=== PATIENT | female | born 1930 | race Caucasian/White ===

== ENCOUNTER 2017-04-13 19:18 | Emergency (ER) | payer OTHER, MEDICARE ==
[2017-04-13] MEDS ORDERED: LET GEL TOPICAL 1 EA SYR TP ONE (19:34)
--- NOTE | 2017-04-13 19:41 | EDPHY ---
H & P HPI/ROS: CHIEF COMPLAINT: Facial injury HISTORY OF PRESENT ILLNESS: This is an 86-year-old female who tripped and fell while picking basil in the garden. She reports a mechanical fall with no preceding symptoms. She struck her left forehead and cheek, left arm, and right leg. There was no loss of consciousness. She denies headache, numbness, or weakness. She is here primarily because of the injury to her forehead. REVIEW OF SYSTEMS: A ten point review of systems was performed and is negative with the exception of the items mentioned in the HPI. Constitutional: No fever Eyes: No eye redness, no eye pain, no change in vision ENT: No sore throat, no earache Cardiovascular: No chest pain, no palpitations Abdominal: no abdominal pain, no nausea, no vomiting, no diarrhea Respiratory: No cough, no shortness of breath Genitourinary: No dysuria, No hematuria, [no urgency, no frequency Musculoskeletal: No back pain, no neck pain, no joint pain, no joint swelling, Skin: No rashes. Neurological: No headache, no new numbness, no new weakness, no difficulty with speech, no changes in memory Past medical history: 1. PE following hip surgery 2. Hypertension 3. Rheumatoid arthritis Past surgical history: 1. Right hip fracture 2. Bilateral knee replacements 3. section 4. Cholecystectomy Social history: She lives with her son and [id number]. She does not use tobacco products. She drinks alcohol, few within 2 alcoholic beverages per week. General Appearance: Alert. Vital signs reviewed. Head: There is an abrasion over the left zygoma and a 1 x 2 cm triangular- shaped skin tear on the left lateral forehead above and extending into the brow. There is a laceration in the left lateral eyebrow measuring 1 cm. No facial bone deformity. Eyes: Pupils equal and round, no conjunctival injection, no discharge. Anicteric. ENT, Mouth: Mucous membranes are moist, no oropharyngeal erythema or edema. No trismus. Dentition intact, no malocclusion. Neck: No lymphadenopathy, supple. Nontender to palpation over the cervical spine in the midline. No pain with active range of motion of the neck. Respiratory: Lungs are clear to auscultation; no wheezes, rales, or rhonchi. Cardiovascular: Regular rate and rhythm; no murmur, rub, or gallop. Gastrointestinal: Abdomen is soft and nontender, no masses or organomegaly, bowel sounds normal. Skin: Warm and dry, no rashes on exposed skin, normal color. Back: Nontender to palpation over the thoracolumbar spine. No CVAT. Extremities: Right lower extremity edema (chronic according to the patient), no calf tenderness or swelling. There is a small skin tear on the right anterior lower leg. There is bruising on the left lateral proximal forearm. No pain with active range of motion of her left elbow or wrist. Neurological: Alert and oriented. Moving all four extremities easily and equally. Cranial nerves II through XII are examined and are intact (visual acuity not tested). Strength is 5 over 5 bilaterally with testing of major motor groups. Sensation is intact to light touch over all 4 extremities. Psychiatric: Normal affect. Constitutional: Initial Vital Signs Temperature (C) 36.9 C 04/13/17 19:45 Heart Rate 85 04/13/17 19:45 Respiratory Rate 14 04/13/17 19:45 Blood Pressure 156/84 H 04/13/17 19:45 O2 Sat (%) 97 04/13/17 19:45 O2 Delivery Mode Room Air Allergies/Adverse Reactions: aspirin Allergy (Verified 04/13/17 19:44) morphine Allergy (Verified 04/13/17 19:44) Penicillins Allergy (Verified 04/13/17 19:43) Nzqjhld-Kmt-Oyr Reductase Inhibitor Allergy (Verified 04/13/17 19:44) Home Medications: Medication Instructions Recorded Levothyroxine 04/13/17 Losartan Potassium 04/13/17 Methotrexate 04/13/17 Medical Decision Making Procedures: Procedure: Laceration repair. Verbal consent was obtained from the patient. The 1 cm laceration on the left lateral eyebrow was anesthetized in the usual fashion. The wound was irrigated, draped and explored to its base with a gloved finger. There were no deep structures involved. The wound was repaired with six 6-0 nylon sutures. The wound repair was single layer . The procedure was performed by myself. ED Course/Re-evaluation: Patient skin tear nitro laceration were initially anesthetized with LET gel followed by infiltration of 1% lidocaine without epinephrine. The torn skin was not salvageable. The eyebrow laceration was sutured. There was no loss of consciousness. She does not have headache. She does not take anticoagulant medication. I do not feel that a CT scan of the head is warranted in this setting. In addition to the eyebrow laceration and the skin tear, which measures 1 x 2 cm and is triangular in shape, she also has an abrasion over the left lateral zygoma, left lateral forearm, and a small skin tear on her right anterior lower leg. She was given wound care instructions. Differential Diagnosis: I considered a differential diagnosis that includes but is not limited to concussion, intracranial hemorrhage, skull fracture, contusion, laceration, skin tear, and cervical injury. - Data Points Medications Given: Discontinued Medications Tetracaine/Epinephrine/Lidocaine (Let Gel Topical) 1 ea TP EDNOW ONE Stop: 04/13/17 19:35 Last Admin: 04/13/17 19:39 Dose: 1 ea Departure - Departure Disposition: Home, Routine, Self-Care Clinical Impression: Skin tear Facial laceration Qualifiers: Encounter type: initial encounter Qualified Code(s): S01.81XA - Laceration without foreign body of other part of head, initial encounter Condition: Good Instructions: Skin Tear (ED), Facial Laceration (ED) Additional Instructions: There are 6 stitches in your left eyebrow. They need to be removed in 7 days. Keep them clean and dry. You can clean the stitches using a Q tip and a mixture of half water and half hydrogen peroxide--this will keep scabs from forming on the stitches. As we discussed, you will have a scar on your face. Your eyebrow may not grow back. You should avoid all sun exposure on your face. Referrals: NONE *PRIMARY CARE P,. [Primary Care Provider] - As per Instructions
[2017-04-13 19:48] VITALS: PULSE 85; RESP 14; TEMP 98.4
[2017-04-13 21:06] VITALS: BP 162/76; O2SAT 93
== END 2017-04-13 21:05 | disposition home or self-care (01) ==
LOC: CED 19:18
PROC: 0HQ1XZZ Repair Face Skin, External Approach (ICD-10-PCS; principal; 2017-04-13)
DX: S01.81XA Laceration without foreign body of other part of head, initial encounter (principal); I10 Essential (primary) hypertension; W01.0XXA Fall on same level from slipping, tripping and stumbling without subsequent striking against object, initial encounter; Y92.007 Garden or yard of unspecified non-institutional (private) residence as the place of occurrence of the external cause